=== PATIENT | male | born 1995 | race Caucasian/White ===

== ENCOUNTER 2017-09-10 06:26 | Emergency (ER) | payer BC, OTHER ==
[~2017-09-10] VITALS: Ht 177.8 cm; Wt 71.9 kg
[2017-09-10 06:29] VITALS: TEMP 39.4; Ht 177.8 cm; Wt 71.9 kg
[2017-09-10] MEDS ORDERED: SODIUM CHLORIDE 0.9% 1000ML 2,000 ML IV STA (06:46)
[2017-09-10] MEDS ORDERED: ACETAMINOPHEN 500 MG TAB PO STA (06:46)
[2017-09-10] MEDS ORDERED: KETOROLAC TROMETHAMINE 30 MG/ML VIAL IV STA (06:46)
[2017-09-10] MEDS ORDERED: ONDANSETRON INJ 2 MG/ML 2 ML VIAL IV STA (06:46)
--- NOTE | 2017-09-10 07:04 | EMERGENCY ROOM VISIT NOTE ---
History Report prepared by Shon: Candida Aceves Under the Supervision of: Dr. Bobby Astudillo M.D. First contact with patient: 06:37 Chief Complaint: FLU LIKE SX Stated Complaint: FEVER 103+,VOMITNG,ACHES History of Present Illness The patient is a 22 year old male who presents to the Emergency Room with complaints of persistent nausea and vomiting that began at 1000 one day ago. The patient states that he has been coughing up greenish mucous, fatigued, congested, and having fevers of 103 degrees Fahrenheit. He reports that he has some pain around his left ribs. The patient states that the last time he vomited was about one hour ago, noting he last took Ibuprofen yesterday which did not relieve his symptoms. He denies any diarrhea or pain with urination. The patient states that he went to [facility] recently, where he was diagnosed with mononucleosis. Source of History: patient Onset: 1000 one day ago Position: other (global) Quality: other (nausea and vomiting) Timing: other (persistent) Associated Symptoms: + fevers, + cough, + fatigue, No diarrhea Note: Associated symptoms include pain near his left ribs. Review of Systems See HPI for pertinent positives and negatives. A total of ten systems were reviewed and were otherwise negative. Past Medical & Surgical Medical Problems: (1) Active asthma (2) Bronchitis (3) Pneumonia Family History Cancer Heart disease Social History Smoking Status: Never Smoker Smokeless Tobacco Use: No Alcohol Use: occasionally Drug Use: none Marital Status: single Housing Status: lives with roommate Occupation Status: student Current/Historical Medications Scheduled Ondasetron Odt (Zofran Odt), 4 MG SL Q6H Oseltamivir Phosphate (Tamiflu), 75 MG PO BID Scheduled PRN Ibuprofen Tab (Motrin), 800 MG PO Q8H PRN for Pain Allergies Coded Allergies: No Known Allergies (Unverified , 09/10/17) Physical Exam Vital Signs Date Time Temp Pulse Resp B/P (MAP) Pulse Ox O2 Delivery O2 Flow Rate FiO2 09/10/17 10:22 91 22 125/75 100 09/10/17 08:38 109 24 116/64 96 Room Air 09/10/17 07:23 124 09/10/17 07:20 122 24 128/73 98 Room Air 09/10/17 06:29 39.4 130 20 129/81 97 Room Air Physical Exam GENERAL: Awake, alert, uncomfortable, in no distress HENT: Dry cracked mucous membranes. Normocephalic, atraumatic. Mild injection in posterior oropharynx, no edema. No tongue elevation or trismus. EYES: Normal conjunctiva. Sclera non-icteric. NECK: Supple. No nuchal rigidity. FROM. No JVD. No pain with tracheal manipulation. RESPIRATORY: Clear to auscultation. CARDIAC: Heart is sinus tachycardic. Extremities warm and well perfused. Pulses equal. ABDOMEN: Soft, non-distended. No tenderness to palpation. No rebound or guarding. No masses. RECTAL: Deferred. MUSCULOSKELETAL: Chest examination reveals no tenderness. The back is symmetrical on inspection without obvious abnormality. There is no CVA tenderness to palpation. No joint edema. LOWER EXTREMITIES: Calves are equal size bilaterally and non-tender. No edema. No discoloration. NEURO: Normal sensorium. No sensory or motor deficits noted. SKIN: No rash or jaundice noted. Medical Decision & Procedures ER Provider Diagnostic Interpretation: Radiology results as stated below per my review and radiologist interpretation: CHEST ONE VIEW PORTABLE CLINICAL HISTORY: 22 years-old Male presenting with chest pain, fever, vomiting. TECHNIQUE: Portable upright AP view of the chest was obtained. COMPARISON: None. FINDINGS: Cardiomediastinal silhouette normal. Lungs and pleural spaces clear. Osseous structures normal. Upper abdomen normal. IMPRESSION: 1. No acute cardiopulmonary disease. Electronically signed by: Davey Pierson M.D. 09/10/2017 7:47 AM Dictated Date/Time: 09/10/2017 7:46 AM Laboratory Results 09/10/17 07:11 Red Blood Count 4.58, Mean Corpuscular Volume 88.9, Mean Corpuscular Hemoglobin 31.4, Mean Corpuscular Hemoglobin Concent 35.4, Mean Platelet Volume 9.8, Neutrophils (%) (Auto) 70.1, Lymphocytes (%) (Auto) 12.2, Monocytes (%) (Auto) 17.2, Eosinophils (%) (Auto) 0.3, Basophils (%) (Auto) 0.1, Neutrophils # (Auto ) 5.48, Lymphocytes # (Auto) 0.95, Monocytes # (Auto) 1.34, Eosinophils # (Auto ) 0.02, Basophils # (Auto) 0.01 09/10/17 07:11 Test 09/10/17 07:11 09/10/17 07:16 White Blood Count 7.81 K/uL (4.8-10.8) Red Blood Count 4.58 M/uL (4.7-6.1) Hemoglobin 14.4 g/dL (14.0-18.0) Hematocrit 40.7 % (42-52) Mean Corpuscular Volume 88.9 fL (80-100) Mean Corpuscular Hemoglobin 31.4 pg (25-34) Mean Corpuscular Hemoglobin Concent 35.4 g/dl (32-36) Platelet Count 138 K/uL (130-400) Mean Platelet Volume 9.8 fL (7.4-10.4) Neutrophils (%) (Auto) 70.1 % Lymphocytes (%) (Auto) 12.2 % Monocytes (%) (Auto) 17.2 % Eosinophils (%) (Auto) 0.3 % Basophils (%) (Auto) 0.1 % Neutrophils # (Auto) 5.48 K/uL (1.4-6.5) Lymphocytes # (Auto) 0.95 K/uL (1.2-3.4) Monocytes # (Auto) 1.34 K/uL (0.11-0.59) Eosinophils # (Auto) 0.02 K/uL (0-0.5) Basophils # (Auto) 0.01 K/uL (0-0.2) RDW Standard Deviation 41.6 fL (36.4-46.3) RDW Coefficient of Variation 12.8 % (11.5-14.5) Immature Granulocyte % (Auto) 0.1 % Immature Granulocyte # (Auto) 0.01 K/uL (0.00-0.02) Anion Gap 7.0 mmol/L (3-11) Est Creatinine Clear Calc Drug Dose 114.3 ml/min Estimated GFR () 118.4 Estimated GFR (Non- 102.2 BUN/Creatinine Ratio 11.7 (10-20) Calcium Level 8.6 mg/dl (8.5-10.1) Total Bilirubin 0.6 mg/dl (0.2-1) Direct Bilirubin 0.2 mg/dl (0-0.2) Aspartate Amino Transf (AST/SGOT) 20 U/L (15-37) Alanine Aminotransferase (ALT/SGPT) 42 U/L (12-78) Alkaline Phosphatase 103 U/L (45-117) Troponin I < 0.015 ng/ml (0-0.045) Total Protein 7.8 gm/dl (6.4-8.2) Albumin 3.9 gm/dl (3.4-5.0) Lipase 105 U/L (73-393) Influenza Type A Antigen Neg for Influ A (NEG) Influenza Type B Antigen Neg for Influ B (NEG) Laboratory results reviewed by me Medications Administered Medications (Trade) Dose Ordered Sig/Meliza Route Start Time Stop Time Status Last Admin Dose Admin Sodium Chloride 2,000 ml @ 999 mls/hr Q2H1M STAT IV 09/10/17 06:46 09/10/17 08:46 DC 09/10/17 07:36 999 MLS/HR Ketorolac Tromethamine (Toradol Inj) 15 mg NOW STAT IV 09/10/17 06:46 09/10/17 06:52 DC 09/10/17 07:36 15 MG Ondansetron HCl (Zofran Inj) 4 mg NOW STAT IV 09/10/17 06:46 09/10/17 06:52 DC 09/10/17 07:36 4 MG Acetaminophen (Tylenol Tab) 1,000 mg NOW STAT PO 09/10/17 06:46 09/10/17 06:52 DC 09/10/17 07:36 1,000 MG Sodium Chloride 1,000 ml @ 999 mls/hr Q1H1M STAT IV 09/10/17 08:36 09/10/17 09:36 DC 09/10/17 08:40 999 MLS/HR ECG Indication: nausea, vomiting Rate (beats per minute): 113 Rhythm: sinus tachycardia Findings: no acute ischemic change, other (normal intervals) Change: Patients electrocardiogram as interpreted by me. ED Course 0642: The patient was evaluated in room B8. A complete history and physical exam was performed. 0646: Ordered Tylenol Tab 1000mg PO, Zofran Inj 4mg IV, Toradol Inj 15mg IV, and Sodium Chloride 2000 ml @ 999 mls/hr IV. 0826: Ordered Sodium Chloride 1000 ml @ 999 mls/hr IV. 0959: I reevaluated the patient. Discussed results and discharge instructions: He verbalized understanding and agreement. The patient is ready for discharge. Medical Decision I reviewed the patient's past medical history, medications, and the nursing notes as described above. The patient's presentation and history were concerning for URI, viral illness, influenza, pneumonia, bronchitis, pericarditis, myocarditis, gastroenteritis, and dehydration. The patient is a 22-year-old gentleman with a past medical history the recent diagnosis of mono presents emergency Department with cough congestion, body aches, nausea and vomiting which began yesterday per history of present illness. The patient last took ibuprofen at 9 PM last night but has been too nauseated to take any further medication. On arrival the patient is uncomfortable but no acute distress, febrile to 39.4, tachycardic to 130s, vital signs otherwise stable. Clinically dry appearing. WBC was within normal limits. Chemistry unremarkable. Flu negative. However, given the patient's recent mono-infection we will treat empirically with Tamiflu. CXR negative. Patient feeling improved after IVFx3 with HR 80-90s. Findings and plan for follow-up reviewed with patient. Mother updated over the phone. Patient agreeable and d/c'd per discharge instructions. Medication Reconcilliation Current Medication List: was personally reviewed by me Blood Pressure Screening Patient's blood pressure: Normal blood pressure Impression Primary Impression: Viral illness Scribe Attestation The scribe's documentation has been prepared under my direction and personally reviewed by me in its entirety. I confirm that the note above accurately reflects all work, treatment, procedures, and medical decision making performed by me. Departure Information Dispostion Home / Self-Care Prescriptions Oseltamivir Phosphate (Tamiflu) 75 Mg Cap 75 MG PO BID, #10 CAP Prov: Bobby Astudillo M.D. 09/10/17 Ibuprofen Tab (MOTRIN) 800 Mg Tab 800 MG PO Q8H Y for Pain, #21 TAB Prov: Bobby Astudillo M.D. 09/10/17 Ondasetron Odt (ZOFRAN ODT) 4 Mg Tab 4 MG SL Q6H for Nausea, #10 TAB Prov: Bobby Astudillo M.D. 09/10/17 Referrals No Doctor, Assigned (PCP) Forms HOME CARE DOCUMENTATION FORM, IMPORTANT VISIT INFORMATION Patient Instructions ED Viral Syndrome, [facility] Additional Instructions Please follow up with your primary care physician in the next 1-3 days for re- evaluation. You likely have a viral illness. Given your recent mono-infection you were given a prescription for Tamiflu (despite your negative test today) as this may help prevent flu infection. Otherwise, your exam, EKG, chest xray, and lab results did not show signs of an emergent condition at this time. Acetaminophen or ibuprofen for pain and fevers as needed. Zofran as needed for nausea. Drink plenty of fluids to ensure hydration. Return to the emergency department for worsening symptoms as described in the accompanying instructions.
[2017-09-10 07:23] LABS: BASO % 0.1 %; BASO ABS # 0.01 K/uL (0-0.2); EOS % 0.3 %; EOS ABS # 0.02 K/uL (0-0.5); HEMATOCRIT 40.7 % (42-52); HEMOGLOBIN 14.4 g/dL (14.0-18.0); IG# 0.01 K/uL (0.00-0.02); LYMPH % 12.2 %; LYMPH ABS # 0.95 K/uL (1.2-3.4); MEAN CELL VOLUME 88.9 fL (80-100); MEAN CORPUSCULAR HEMOGLOBIN 31.4 pg (25-34); MEAN CORPUSCULAR HGB CONC 35.4 g/dl (32-36); MEAN PLATELET VOLUME 9.8 fL (7.4-10.4); MONO % 17.2 %; MONO ABS # 1.34 K/uL (0.11-0.59); NEUT % 70.1 %; NEUT ABS # 5.48 K/uL (1.4-6.5); PLATELET COUNT 138 K/uL (130-400); RED CELL DISTRIBUTION WIDTH CV 12.8 % (11.5-14.5); RED CELL DISTRIBUTION WIDTH SD 41.6 fL (36.4-46.3); WHITE BLOOD COUNT 7.81 K/uL (4.8-10.8)
[2017-09-10 07:36] LABS: ALBUMIN 3.9 gm/dl (3.4-5.0); ALT/SGPT 42 U/L (12-78); AST/SGOT 20 U/L (15-37); BLOOD UREA NITROGEN 12 mg/dl (7-18); CALCIUM 8.6 mg/dl (8.5-10.1); CARBON DIOXIDE 25 mmol/L (21-32); CREATININE 1.04 mg/dl (0.60-1.40); GLUCOSE 93 mg/dl (70-99); LIPASE 105 U/L (73-393); POTASSIUM 3.9 mmol/L (3.5-5.1); SODIUM 137 mmol/L (136-145)
[2017-09-10 07:41] LABS: ALKALINE PHOSPHATASE 103 U/L (45-117); TOTAL PROTEIN 7.8 gm/dl (6.4-8.2)
--- NOTE | 2017-09-10 07:49 | DIAGNOSTIC IMAGING REPORT ---
CHEST ONE VIEW PORTABLE CLINICAL HISTORY: 22 years-old Male presenting with chest pain, fever, vomiting. TECHNIQUE: Portable upright AP view of the chest was obtained. COMPARISON: None. FINDINGS: Cardiomediastinal silhouette normal. Lungs and pleural spaces clear. Osseous structures normal. Upper abdomen normal. IMPRESSION: 1. No acute cardiopulmonary disease. Electronically signed by: Davey Pierson M.D. 09/10/2017 7:47 AM Dictated Date/Time: 09/10/2017 7:46 AM
[2017-09-10 07:52] LABS: INFLUENZA B ANTIGEN Neg for Influ B (NEG)
[2017-09-10] MEDS ORDERED: SODIUM CHLORIDE 0.9% 1000ML 1,000 ML IV STA (08:36)
[2017-09-10] MEDS ORDERED: ONDA4TAB10 SL (08:48)
[2017-09-10] MEDS ORDERED: IBUP-1451 PO (09:46)
[2017-09-10] MEDS ORDERED: OSEL75CA23 PO (09:46)
[2017-09-10 10:22] VITALS: BP 125/75; PULSE 91; O2SAT 100
== END 2017-09-10 10:23 | disposition home or self-care (01) ==
LOC: C.EDB 06:28
DX: B34.9 Viral infection, unspecified (principal); R07.81 Pleurodynia; R00.0 Tachycardia, unspecified; J45.909 Unspecified asthma, uncomplicated